=== PATIENT | male | born 1980 | race Caucasian/White ===

== ENCOUNTER → 2017-02-08 | Outpatient (CLI) | payer OTHER | LOC: US 12:32 | DX: M79.601 Pain in right arm (principal) | CPT/HCPCS: 93971 ==

== ENCOUNTER → 2017-02-23 | Outpatient (CLI) | payer OTHER | LOC: RAD 10:28 | DX: M25.532 Pain in left wrist (principal) | CPT/HCPCS: 73110 ==

== ENCOUNTER 2017-03-02 09:00 | Emergency (ER) | payer OTHER | END 2017-03-02 10:10 | disposition home or self-care (01) | LOC: ER1 09:00 | DX: M25.532 Pain in left wrist (principal); M25.561 Pain in right knee; M10.9 Gout, unspecified; Z79.899 Other long term (current) drug therapy | CPT/HCPCS: 99283 ==

== ENCOUNTER → 2017-03-07 | Outpatient (CLI) | payer OTHER ==
[2017-03-07 11:42] LABS: HEMOGLOBIN 15.9 gm/dl (14.0-17.5); RED BLOOD COUNT 5.22 M/UL (4.20-5.50); WHITE BLOOD COUNT 9.9 K/UL (4.5-11.0)
== END ==
LOC: LAB 10:51
PROVIDERS: Orthopaedic Surgery
DX: M10.9 Gout, unspecified (principal); M25.561 Pain in right knee
CPT/HCPCS: 36415; 85027; 86140